=== PATIENT | female | born 1970 | race African-American/Black ===

== ENCOUNTER 2016-07-01 12:20 | Emergency (ER) | payer MEDICARE, OTHER ==
[~2016-07-01] VITALS: Ht 162.6 cm; Wt 90.0 kg
[~2016-07-01 12:20] MED LIST: DIVA250ER PO; MACR100C2 PO; NAPR1TAB34 PO; RISP2TAB37 PO
[2016-07-01 12:22] VITALS: BP 177/86; PULSE 102; RESP 20; TEMP 98.2; O2SAT 98
[2016-07-01] MEDS ORDERED: PANTOPRAZOLE SODIUM 40 MG VIAL IVP ONE (12:45)
--- NOTE | 2016-07-01 13:14 | RADRPT ---
EXAM DATE/TIME: 07/01/2016 12:45 [place] COMPARISON: CHEST SINGLE AP, May 04, 2015, 21:58. INDICATIONS : Cough. Vomiting blood. MEDICAL HISTORY : Hypertension. Diabetes mellitus type II. SURGICAL HISTORY : None. ENCOUNTER: Initial ACUITY: 1 day PAIN SCORE: 0/10 LOCATION: Bilateral chest FINDINGS: A single view of the chest demonstrates the lungs to be symmetrically aerated without evidence of mas s, infiltrate or effusion. The cardiomediastinal contours are unremarkable. Osseous structures are intact. CONCLUSION: No acute disease. Brady Davies MD on July 01, 2016 at 13:12 Board Certified Radiologist. This report was verified electronically.
[2016-07-01 13:20] LABS: AUTOMATED NEUTROPHIL # 5.2 TH/MM3 (1.8-7.7); BASOPHIL # 0.1 TH/MM3 (0-0.2); BASOPHIL % 1.4 % (0.0-2.0); EOSINOPHIL # 0.4 TH/MM3 (0-0.4); HEMATOCRIT 40.2 % (35.0-46.0); HEMO FLAGS DIFF FINAL; LYMPH % 31.8 % (9.0-44.0); LYMPHOCYTE # 2.9 TH/MM3 (1.0-4.8); MEAN CELL VOLUME 85.1 FL (80.0-100.0); MEAN CORPUSCULAR HEMOGLOBIN 28.2 PG (27.0-34.0); MEAN CORPUSCULAR HGB CONC 33.2 % (32.0-36.0); MONO % 4.6 % (0.0-8.0); NEUT % 58.2 % (16.0-70.0); PLATELET COUNT 393 TH/MM3 (150-450); RED BLOOD COUNT 4.72 MIL/MM3 (4.00-5.30); RED CELL DISTRIBUTION WIDTH 16.5 % (11.6-17.2)
[2016-07-01 13:30] LABS: APTT (PATIENT) 27.1 SEC (24.3-30.1); PROTHROMBIN TIME - PATIENT 10.5 SEC (9.8-11.6)
[2016-07-01 13:46] LABS: ANION GAP 9 MEQ/L (5-15); AST (GOT) 11 U/L (15-37); BICARBONATE 27.4 MEQ/L (21.0-32.0); BLOOD UREA NITROGEN 16 MG/DL (7-18); CHLORIDE 105 MEQ/L (98-107); GLOMERULAR FILTRATION RATE 52 ML/MIN (>89); POTASSIUM 3.9 MEQ/L (3.5-5.1); SODIUM (NA) 141 MEQ/L (136-145)
[2016-07-01 13:49] LABS: ALKALINE PHOSPHATASE 105 U/L (45-117); ALT (GPT) 21 U/L (10-53); TOTAL BILIRUBIN ADULT 0.2 MG/DL (0.2-1.0)
--- NOTE | 2016-07-01 13:58 | PD ---
Data Data Last Documented VS Vital Signs Date Time Temp Pulse Resp B/P Pulse Ox O2 Delivery O2 Flow Rate FiO2 07/01/16 12:37 68 18 07/01/16 12:22 98.2 177/86 98 Room Air Orders Group A Rapid Strep Screen (07/01/16 12:37) Chest, Single Ap (07/01/16 12:37) Complete Blood Count With Diff (07/01/16 12:44) Comprehensive Metabolic Panel (07/01/16 12:44) Lipase (07/01/16 12:44) Prothrombin Time / Inr (Pt) (07/01/16 12:44) Act Partial Throm Time (Ptt) (07/01/16 12:44) Pantoprazole Inj (Protonix Inj) (07/01/16 12:45) Strep Culture (Group A) (07/01/16 12:45) Labs Laboratory Tests Test 07/01/16 12:56 White Blood Count 9.0 TH/MM3 Red Blood Count 4.72 MIL/MM3 Hemoglobin 13.3 GM/DL Hematocrit 40.2 % Mean Corpuscular Volume 85.1 FL Mean Corpuscular Hemoglobin 28.2 PG Mean Corpuscular Hemoglobin 33.2 % Concent Red Cell Distribution Width 16.5 % Platelet Count 393 TH/MM3 Mean Platelet Volume 7.9 FL Neutrophils (%) (Auto) 58.2 % Lymphocytes (%) (Auto) 31.8 % Monocytes (%) (Auto) 4.6 % Eosinophils (%) (Auto) 4.0 % Basophils (%) (Auto) 1.4 % Neutrophils # (Auto) 5.2 TH/MM3 Lymphocytes # (Auto) 2.9 TH/MM3 Monocytes # (Auto) 0.4 TH/MM3 Eosinophils # (Auto) 0.4 TH/MM3 Basophils # (Auto) 0.1 TH/MM3 CBC Comment DIFF FINAL Differential Comment Prothrombin Time 10.5 SEC Prothromb Time International 1.0 RATIO Ratio Activated Partial 27.1 SEC Thromboplast Time Sodium Level 141 MEQ/L Potassium Level 3.9 MEQ/L Chloride Level 105 MEQ/L Carbon Dioxide Level 27.4 MEQ/L Anion Gap 9 MEQ/L Blood Urea Nitrogen 16 MG/DL Creatinine 1.33 MG/DL Estimat Glomerular Filtration 52 ML/MIN Rate Random Glucose 307 MG/DL Calcium Level 8.7 MG/DL Total Bilirubin 0.2 MG/DL Aspartate Amino Transf 11 U/L (AST/SGOT) Alanine Aminotransferase 21 U/L (ALT/SGPT) Alkaline Phosphatase 105 U/L Total Protein 7.6 GM/DL Albumin 3.3 GM/DL Lipase 159 U/L [facility] Supervised Visit with AGGIE: Yes Narrative Course I, Dr. Cartagena, have reviewed the advance practice practioner's documentation and am in agreement, met with the patient face to face, made the diagnosis, and the medical decision making was done by me. *My assessment and Findings: 46-year-old female with history of HTN, DM, bipolar disorder here with complaint of sore throat and possible hematemesis. Patient states that the last 2 days she has had sore throat. This is bilateral , slightly worsened when she swallows. She has been gargling with salt water without much improvement. No fevers or chills or difficulty eating. She states that she's had some nausea and yesterday had one episode of emesis that was bright reddish in color. She denies eating anything that was reddish dentition generally this was blood. She did not witness any blood clot. She has not had any hematochezia and denies any history of GI bleed. This happened last night and in the interim she has not had any recurrent nausea, vomiting and denies any abdominal pain. Patient denies any hemoptysis. Posterior pharynx is minimally erythematous but no uvulitis. Her abdominal examination is benign. Rectal examination performed by PA, please see documentation. Differential includes pharyngitis, bacterial versus viral. My suspicion for GI bleed is low given patient's symptomatology however this is on the differential. Laboratory workup was negative she remained stable without any persistent nausea or vomiting here. Patient will be discharged home. Danette Cartagena MD Jul 01, 2016 13:58
[2016-07-01] MEDS ORDERED: ALBUAER3 INH (14:03)
[2016-07-01] MEDS ORDERED: AZIT250T3 PO (14:03)
--- NOTE | 2016-07-01 14:03 | PD ---
HPI Chief Complaint: ENT Complaint Time Seen by Provider: 13:51 Travel History International Travel<30 days: No Contact w/Intl Traveler<30days: No Traveled to known affect area: No History of Present Illness HPI 46-year-old female that presents to the ED for evaluation of sore throat as well as congestion and cough and vomiting blood. Per patient she's had this for the past 2 days. Per patient he also started with a sore throat. Per patient she does have sick contacts at home. Per patient she's been also having some cough and she smokes. Per patient when asked if she has blood when she coughs versus when she vomits she states that she only has it when she vomits. Per patient she only has some blood but not a lot. Per patient she's never had this before. She states that she feels a little bit short of breath. She denies any abdominal discomfort at this time and the last time she vomited was around 6:00 this morning. She states that her bowel movements have been normal. She states having chills and sweats. She states that she has no chest pain. She denies any headache. She states that she does have congestion and runny nose. Symptoms have been worsening which is what prompted her visit here today. Per patient her pain in her throat is 6 out of 10. She denies any dizziness. No other symptoms reported. No radiation of the pain. PFSH Past Medical History Bipolar Disorder: Yes Depression: Yes Cardiovascular Problems: Yes Diabetes: Yes Diminished Hearing: No Hypertension: Yes Immunizations Current: Yes Tetanus Vaccination: < 5 Years Influenza Vaccination: Yes ?: Not LMP: 12/2015 : 2 Para: 2 Past Surgical History Abdominal Surgery: Yes (HERNIA REPAIR) Section: Yes (X 2) Other Surgery: Yes (hernia repair) Social History Alcohol Use: Yes (occ) Tobacco Use: Yes (1 PPD) Substance Use: No Allergies-Medications (Allergen,Severity, Reaction): Coded Allergies: No Known Allergies (Unverified , 04/01/16) Reported Meds & Prescriptions Reported Meds & Active Scripts Active Naproxen EC (Naproxen) 500 Mg Tabdr 500 Mg PO BID PRN Reported Risperdal (Risperidone) 2 Mg Tab 2 Mg PO BID Depakote ER (Divalproex Sodium) 250 Mg Cesario 250 Mg PO BID Review of Systems General / Constitutional: Positive: Chills, No: Fever, Weight Gain, Weight Loss, Other Eyes: No: Diploplia, Blurred Vision, Photophobia, Drainage, Redness, Foreign Body Sensation, Pain, Tearing, Blind Spots, Visual changes, Blindness, Other HENT: Positive: Sore Throat, Rhinitis, Congestion, No: Headaches, Vertigo, Lightheadedness, Rhinorrhea, Nosebleed, Neck Stiffness, Neck Pain, Masses, Gingival Bleeding, Dental Difficulties, Ear Discharge, Earache, Other Cardiovascular: No: Chest Pain or Discomfort, Palpitations, Irregular Rhythm, Tachycardia, Diaphoresis, Syncope, Dyspnea on exertion, Varicosities, Edema, Cyanosis, Varicosities, Phlebitis, Claudication, Other Respiratory: Positive: Cough, Shortness of Breath, No: Wheezing, Sneezing, Orthopnea, Hemoptysis, Stridor, Night Sweats, Pleuritic Pain, Other Gastrointestinal: Positive: Nausea, Vomiting, Hematemesis, No: Diarrhea, Abdominal Pain, Hematochezia, Constipation, Changes in Bowel Habits, Indigestion , Dysphagia, Loss of Appetite, Other Genitourinary: No: Urgency, Frequency, Dysuria, Nocturia, Hematuria, Decreased Urinary Output, Oliguria, Hesitancy, Dribbling, Incontinence, Pelvic Pain, Flank Pain, Dyspareunia, Discharge, Dysmenorrhea, Menorrhagia, Metorrhagia, Vaginal Bleeding, Other Musculoskeletal: No: Myalgias, Arthralgias, Limited ROM, Weakness, Cramping, Edema, Pain, Atrophy, Other Skin: No Rash, No Itching, No Dryness, No Lumps, No Hives, No Change in Pigmentation, No Change in nails, No Alopecia, No Lesions, No Breast Lumps, No Breast Tenderness, No Breast Swelling, No Other Neurologic: No: Weakness, Dizziness, Syncope, Focal Abnormalities, Coordination Problem, Tremor, Ataxia, Headache, Change in Mentation, Slurred Speech, Paresthesia, Incontinence, Seizures, Sensory Disturbance, Other Psychiatric: No: Anxiety, Depression, Suicidal Ideations, Disorder of Thought, Mood Disorder, Substance Abuse, Homicidal Ideation, Other Endocrine: No: Heat Intolerance, Cold Intolerance, Polyuria, Polydipsia, Other Hematologic/Lymphatic: No: Easy Bruising, Lymph Node Enlargement, Other Physical Exam Narrative GENERAL: Well-nourished, well-developed patient in no apparent distress. SKIN: Warm and dry. HEAD: Atraumatic. Normocephalic. EYES: Pupils equal and round reactive to light and accommodation. No scleral icterus. No injection or drainage. ENT: No nasal bleeding or discharge. Mucous membranes pink and moist. TMs are clear with no sign of infection or perforation. No mastoid tenderness. Ear canals are intact bilaterally. No lymphadenopathy. Nostril mucosa is red and moist with clear mucus noted. No sinus tenderness to palpation noted. Tonsils are not enlarged or swollen. No ulvua Deviation. Tongue is midline. NECK: Trachea midline. No JVD. No meningeal signs noted CARDIOVASCULAR: Regular rate and rhythm. No murmurs, S3, S4 RESPIRATORY: No accessory muscle use. Clear to auscultation. Breath sounds equal bilaterally. GASTROINTESTINAL: Abdomen soft, non-tender, nondistended. Hepatic and splenic margins not palpable. MUSCULOSKELETAL: Extremities without clubbing, cyanosis, or edema. No obvious deformities. Full range of motion of the upper and lower extremities bilaterally. 2+ pulses bilaterally. NEUROLOGICAL: Awake and alert. No obvious cranial nerve deficits. Motor grossly within normal limits. Five out of 5 muscle strength in the arms and legs. Normal speech. PSYCHIATRIC: Appropriate mood and affect; insight and judgment normal. Data Data Last Documented VS Vital Signs Date Time Temp Pulse Resp B/P Pulse Ox O2 Delivery O2 Flow Rate FiO2 07/01/16 12:37 68 18 07/01/16 12:22 98.2 177/86 98 Room Air Orders Group A Rapid Strep Screen (07/01/16 12:37) Chest, Single Ap (07/01/16 12:37) Complete Blood Count With Diff (07/01/16 12:44) Comprehensive Metabolic Panel (07/01/16 12:44) Lipase (07/01/16 12:44) Prothrombin Time / Inr (Pt) (07/01/16 12:44) Act Partial Throm Time (Ptt) (07/01/16 12:44) Pantoprazole Inj (Protonix Inj) (07/01/16 12:45) Strep Culture (Group A) (07/01/16 12:45) Labs Laboratory Tests Test 07/01/16 12:56 White Blood Count 9.0 TH/MM3 Red Blood Count 4.72 MIL/MM3 Hemoglobin 13.3 GM/DL Hematocrit 40.2 % Mean Corpuscular Volume 85.1 FL Mean Corpuscular Hemoglobin 28.2 PG Mean Corpuscular Hemoglobin 33.2 % Concent Red Cell Distribution Width 16.5 % Platelet Count 393 TH/MM3 Mean Platelet Volume 7.9 FL Neutrophils (%) (Auto) 58.2 % Lymphocytes (%) (Auto) 31.8 % Monocytes (%) (Auto) 4.6 % Eosinophils (%) (Auto) 4.0 % Basophils (%) (Auto) 1.4 % Neutrophils # (Auto) 5.2 TH/MM3 Lymphocytes # (Auto) 2.9 TH/MM3 Monocytes # (Auto) 0.4 TH/MM3 Eosinophils # (Auto) 0.4 TH/MM3 Basophils # (Auto) 0.1 TH/MM3 CBC Comment DIFF FINAL Differential Comment Prothrombin Time 10.5 SEC Prothromb Time International 1.0 RATIO Ratio Activated Partial 27.1 SEC Thromboplast Time Sodium Level 141 MEQ/L Potassium Level 3.9 MEQ/L Chloride Level 105 MEQ/L Carbon Dioxide Level 27.4 MEQ/L Anion Gap 9 MEQ/L Blood Urea Nitrogen 16 MG/DL Creatinine 1.33 MG/DL Estimat Glomerular Filtration 52 ML/MIN Rate Random Glucose 307 MG/DL Calcium Level 8.7 MG/DL Total Bilirubin 0.2 MG/DL Aspartate Amino Transf 11 U/L (AST/SGOT) Alanine Aminotransferase 21 U/L (ALT/SGPT) Alkaline Phosphatase 105 U/L Total Protein 7.6 GM/DL Albumin 3.3 GM/DL Lipase 159 U/L [facility] Medical Decision Making Medical Screen Exam Complete: Yes Emergency Medical Condition: Yes Medical Record Reviewed: Yes Interpretation(s) CBC & BMP Diagram 07/01/16 12:56 Chest x-ray was negative for acute disease. Coags within normal limits. LFTs and lipase within normal limits. Differential Diagnosis Hematemesis versus sore throat versus pharyngitis versus strep throat versus pneumonia versus gastritis versus peptic ulcer disease Narrative Course 46-year-old female that presents to the ED for evaluation of sore throat and hematemesis. Patient was probably examine him and attending and was found to have signs and symptoms of unclear etiology. Patient is somewhat of a car historian secondary to her mental illness. She does tell us that she has been vomiting blood and not related to the cough. Because of this lab work was done as well as chest x-ray. Hemoccult was done by me with the nurse present. He was negative. At this time my attending recommends discharge. Patient was given 1 albuterol inhaler here and she'll be sent home with a prescription for albuterol inhaler. Patient was given a prescription for azithromycin. Patient was told to follow with PCP. Take OTC medicines as needed. See ED worsening symptoms. HemaPrompt Point of Care Internal Pos. & Neg. Controls: Passed Fecal Specimen Occult Blood: Negative Diagnosis Primary Impression: Pharyngitis Qualified Code: J02.9 - Pharyngitis, unspecified etiology Additional Impression: Hematemesis Qualified Code: K92.0 - Hematemesis with nausea Patient Instructions: General Instructions Additional Instructions: Tylenol for pain and fever. You can use [id number] antihistamine as well as well as Mucinex as needed for runny nose and congestion. Cough drops for cough as needed. Drink plenty of fluids. Follow-up with PCP. See ED for worsening symptoms. Med/Other Pt SpecificInfo: Prescription(s) given Disposition: 01 DISCHARGE HOME Condition: Stable Aime Huizar Jul 01, 2016 14:03
[2016-07-01] MEDS ORDERED: RESP: ALBUTEROL 2.5 MG/3 ML NEB (SCH) INH ONE (14:15)
== END 2016-07-01 15:01 | disposition home or self-care (01) ==
LOC: NEPE 12:20
DX: J02.9 Acute pharyngitis, unspecified (principal); K92.0 Hematemesis; R06.02 Shortness of breath; R05 Cough; E11.9 Type 2 diabetes mellitus without complications; I10 Essential (primary) hypertension; F17.200 Nicotine dependence, unspecified, uncomplicated; Z86.59 Personal history of other mental and behavioral disorders; Z86.79 Personal history of other diseases of the circulatory system
CPT/HCPCS: 71010; 80053; 83690; 85025; 85610; 85730; 87081; 87880; 94664; 96374; 99284; C9113; J7613

== ENCOUNTER 2016-10-31 07:58 | Emergency (ER) | payer MEDICARE, OTHER ==
[~2016-10-31 07:58] MED LIST changes: +ALBUAER3 INH; +AZIT250T3 PO; -MACR100C2 PO
[2016-10-31 07:59] VITALS: BP 163/93; PULSE 102; RESP 20; TEMP 98.7; O2SAT 97
[2016-10-31 08:13] VITALS: BP 140/92; PULSE 90; RESP 19; O2SAT 97
[2016-10-31] MEDS ORDERED: PANTOPRAZOLE SODIUM 40 MG VIAL IV PUSH ONE (08:30)
[2016-10-31] MEDS ORDERED: ONDANSETRON HCL 4 MG/2 ML VIAL IV PUSH ONE (08:30)
[2016-10-31] MEDS ORDERED: SODIUM CHLOR 0.9% 1000 ML INJ 1,000 ML IV ONE (08:30)
[2016-10-31 09:18] LABS: BACTERIA, URINE RARE /hpf; BLOOD, URINE NEG (NEG); COMMENT (UR) CULT NOT INDICATED; CULTURE IF INDICATED CULT NOT INDICATED; GLUCOSE,URINE NEG (NEG); KETONE, URINE NEG (NEG); MUCUS URINE FEW /lpf (OCC); NITRITE,URINE NEG (NEG); PH, URINE 5.5 (5.0-8.5); SQUAMOUS EPITHELIAL CELL URINE 6 /hpf (0-5); URINE COLOR YELLOW (YELLW/STRAW)
[2016-10-31 09:28] LABS: AUTOMATED NEUTROPHIL # 5.6 TH/MM3 (1.8-7.7); BASOPHIL # 0.1 TH/MM3 (0-0.2); BASOPHIL % 1.2 % (0.0-2.0); EOSINOPHIL # 0.4 TH/MM3 (0-0.4); EOSINOPHIL % 4.6 % (0.0-4.0); HEMATOCRIT 41.5 % (35.0-46.0); HEMO FLAGS DIFF FINAL; MEAN CELL VOLUME 88.4 FL (80.0-100.0); MEAN CORPUSCULAR HEMOGLOBIN 29.7 PG (27.0-34.0); MEAN CORPUSCULAR HGB CONC 33.6 % (32.0-36.0); MONO % 5.7 % (0.0-8.0); NEUT % 57.5 % (16.0-70.0); PLATELET COUNT 340 TH/MM3 (150-450); RED CELL DISTRIBUTION WIDTH 14.6 % (11.6-17.2); WHITE BLOOD COUNT 9.7 TH/MM3 (4.0-11.0)
--- NOTE | 2016-10-31 09:38 | PD ---
HPI Chief Complaint: GI Complaint Time Seen by Provider: 08:11 (Chris Lewis MD) Travel History International Travel<30 days: No Contact w/Intl Traveler<30days: No Traveled to known affect area: No (Chris Lewis MD) History of Present Illness HPI This is a 46-year-old female patient with a past medical history of bipolar schizoaffective disorder hypertension and type 2 diabetes who admits to drinking alcohol regularly presents with a complaint of a 2 day history of abdominal pain that she rates maybe 3-4 out of 10 back pain and burning when she urinates. Patient denies vaginal discharge fever chills. Patient states she still has appetite but she has vomited at least 2 times a day for the past 2 days and feels nauseated. Patient is sexually active with one male partner patient states she no longer is menstruating. (Chris Lewis MD) PFSH Past Medical History Bipolar Disorder: Yes Depression: Yes Cardiovascular Problems: Yes Diabetes: Yes Patient Takes Glucophage: No Diminished Hearing: No Hypertension: Yes Immunizations Current: Yes ?: Unknown : 2 Para: 2 (Chris Lewis MD) Past Surgical History Abdominal Surgery: Yes (HERNIA REPAIR) Section: Yes (X 2) Other Surgery: Yes (hernia repair) (Chris Lewis MD) Social History Alcohol Use: Yes (occ) Tobacco Use: Yes (1 PPD) Substance Use: No (Chris Lewis MD) Allergies-Medications (Allergen,Severity, Reaction): Coded Allergies: No Known Allergies (Unverified , 04/01/16) Reported Meds & Prescriptions Reported Meds & Active Scripts Active Cipro (Ciprofloxacin HCl) 500 Mg Tab 500 Mg PO BID 7 Days Protonix (Pantoprazole Sodium) 40 Mg Tab 40 Mg PO DAILY Tylenol (Acetaminophen) 325 Mg Tab 650 Mg PO Q6H PRN Azithromycin 250 Mg Tab 250 Mg PO DIRECTED Take 2 tabs (500 mg) on day 1 then 1 tab daily x 4 days. Proair Hfa 8.5 GM Inh (Albuterol Sulfate) 90 Mcg/Act Aer 2 Puff INH Q4-6H PRN 108 mcg/actuation Naproxen EC (Naproxen) 500 Mg Tabdr 500 Mg PO BID PRN Reported Risperdal (Risperidone) 2 Mg Tab 2 Mg PO BID Depakote ER (Divalproex Sodium) 250 Mg Cesario 250 Mg PO BID (Danette Cartagena MD) Review of Systems ROS Limitations: Clinical Condition Except as stated in HPI: all other systems reviewed are Neg General / Constitutional: No: Fever, Chills, Weight Gain, Weight Loss, Other Eyes: No: Diploplia, Blurred Vision, Photophobia, Drainage, Redness, Foreign Body Sensation, Pain, Tearing, Blind Spots, Visual changes, Blindness, Other HENT: No: Headaches, Vertigo, Lightheadedness, Sore Throat, Rhinitis, Rhinorrhea, Congestion, Nosebleed, Neck Stiffness, Neck Pain, Masses, Gingival Bleeding, Dental Difficulties, Ear Discharge, Earache, Other Cardiovascular: No: Chest Pain or Discomfort, Palpitations, Irregular Rhythm, Tachycardia, Diaphoresis, Syncope, Dyspnea on exertion, Varicosities, Edema, Cyanosis, Varicosities, Phlebitis, Claudication, Other Respiratory: No: Cough, Shortness of Breath, Wheezing, Sneezing, Orthopnea, Hemoptysis, Stridor, Night Sweats, Pleuritic Pain, Other Gastrointestinal: Positive: Nausea, Vomiting, Abdominal Pain Genitourinary: Positive: Dysuria, Flank Pain, No: Urgency, Frequency, Nocturia , Hematuria, Decreased Urinary Output, Oliguria, Hesitancy, Dribbling, Incontinence, Pelvic Pain, Dyspareunia, Discharge, Dysmenorrhea, Menorrhagia, Metorrhagia, Vaginal Bleeding, Other Musculoskeletal: No: Myalgias, Arthralgias, Limited ROM, Weakness, Cramping, Edema, Pain, Atrophy, Other Skin: No Rash, No Itching, No Dryness, No Lumps, No Hives, No Change in Pigmentation, No Change in nails, No Alopecia, No Lesions, No Breast Lumps, No Breast Tenderness, No Breast Swelling, No Other Neurologic: No: Weakness, Dizziness, Syncope, Focal Abnormalities, Coordination Problem, Tremor, Ataxia, Headache, Change in Mentation, Slurred Speech, Paresthesia, Incontinence, Seizures, Sensory Disturbance, Other Psychiatric: No: Anxiety, Depression, Suicidal Ideations, Disorder of Thought, Mood Disorder, Substance Abuse, Homicidal Ideation, Other Endocrine: No: Heat Intolerance, Cold Intolerance, Polyuria, Polydipsia, Other Hematologic/Lymphatic: No: Easy Bruising, Lymph Node Enlargement, Other (Chris Lewis MD) Physical Exam Exam Limitations: Clinical Condition Narrative GENERAL: Middle-aged female in mild distress SKIN: Focused skin assessment warm/dry.no lesions no cyanosis no erythema HEAD: Atraumatic. Normocephalic. EYES: Pupils equal and round and reactive . No scleral icterus. No injection or drainage. ENT: No nasal bleeding or discharge. Oral mucosa somewhat dry NECK: Trachea midline. No JVD. CARDIOVASCULAR: S1-S2 appreciated. Regular rate and rhythm. No murmur appreciated. Pulses normal throughout. RESPIRATORY: No accessory muscle use. Clear to auscultation. Breath sounds equal bilaterally. GASTROINTESTINAL: Abdomen soft, positive epigastric tenderness positive suprapubic tenderness, nondistended. Hepatic and splenic margins not palpable. Bowel sounds normal. No peritoneal signs. exam: No true CMT exam uncomfortable however scant whitish discharge with a mild fishy odor no genital lesions no adnexal masses or tenderness no vaginal bleeding MUSCULOSKELETAL: No obvious deformities. No clubbing. No cyanosis. No edema. Positive left flank tenderness NEUROLOGICAL: Awake and alert and oriented 3.. No obvious cranial nerve deficits. Motor and sensory exam grossly within normal limits. Normal speech. No meningeal signs. PSYCHIATRIC: Affect somewhat flat t; insight and judgment normal. No suicidal or homicidal ideation. (Chris Lewis MD) Data Data Orders Pantoprazole Inj (Protonix Inj) (10/31/16 08:30) Ondansetron Inj (Zofran Inj) (10/31/16 08:30) Sodium Chlor 0.9% 1000 Ml Inj (Ns 1000 M (10/31/16 08:30) Complete Blood Count With Diff (10/31/16 08:30) Comprehensive Metabolic Panel (10/31/16 08:30) Direct Bilirubin (10/31/16 08:30) Amylase (10/31/16 08:30) Lipase (10/31/16 08:30) Urinalysis - C+S If Indicated (10/31/16 08:30) Ed Urine Pregnancytest Poc (10/31/16 08:30) Us Abdomen Gallbladder (10/31/16 ) Wet Prep Profile (10/31/16 09:38) Gc And Chlamydia Pcr (10/31/16 09:38) Ciprofloxacin (Cipro) (10/31/16 10:45) Acetaminophen (Tylenol) (10/31/16 10:45) Alcohol (Ethanol) (10/31/16 10:48) (Danette Cartagena MD) [facility] [place] Medical Decision Making Medical Screen Exam Complete: Yes Emergency Medical Condition: Yes Medical Record Reviewed: Yes Interpretation(s) White cell count normal glucose 183 UA small leukocyte Wet prep negative gallbladder ultrasound normal Differential Diagnosis Differential diagnose dehydration acute gastritis urinary tract infection abdominal pain Narrative Course This is a 46-year-old female evaluated for abdominal pain patient noted that have epigastric and left flank tenderness on exam pelvic exam reveals scant normal-appearing discharged without mild strong odor but no appreciable CMT adnexal masses or tenderness no vaginal bleeding or vaginal lesions noted patient has a normal white cell count syndrome glucose 183 patient given 1 L normal saline Protonix and Zofran and epigastric pain improved patient also given Tylenol extra strength and by mouth Cipro and was able to tolerate all of the oral medication. Ultrasound of gallbladder was essentially normal patient states she feels better. We will discharge patient home on Protonix and Zofran and ciprofloxacin patient , counseled on EtOH abuse and instructed to follow with her primary care provider to discuss genital culture results and for further evaluation and management (Chris Lewis MD) Narrative Course [employer] Administrator signing for document in draft. (Danette Cartagena MD) Diagnosis Primary Impression: Acute gastritis Additional Impressions: Dehydration urinary tract infection Patient Instructions: Gastritis (DC), General Instructions, Type 2 Diabetes in Adults (DC), Urinary Tract Infection in Women (DC) Additional Instructions: Stay well hydrated Avoid Motrin and of other nonsteroidal drugs Take Tylenol extra strength as needed for pain Take Zofran as needed for nausea Avoid alcohol use Finish antibiotics Follow diabetic diet Return if symptoms persist or worsen Follow-up with her primary care doctor in 1 week as needed Scripts Ciprofloxacin (Cipro)500 Mg [id number] Mg PO BID 7 Days Ref 0 Prov:Chris Lewis MD 10/31/16 Pantoprazole (Protonix)40 Mg Tab40 Mg PO DAILY #30 TAB Ref 0 Prov:Chris Lewis MD 10/31/16 Acetaminophen (Tylenol)325 Mg [id number] Mg PO Q6H PRN (pain) #15 TAB Ref 0 Prov:Chris Lewis MD 10/31/16 Disposition: 01 DISCHARGE HOME Condition: Stable Chris Lewis MD Oct 31, 2016 09:38 Danette Cartagena MD Nov 09, 2016 17:25 CBC Comment DIFF FINAL Differential Comment Urine Color YELLOW Urine Turbidity HAZY Urine pH 5.5 Urine Specific Joseph 1.021 Urine Protein TRACE mg/dL Urine Glucose (UA) NEG mg/dL Urine Ketones NEG mg/dL Urine Occult Blood NEG Urine Nitrite NEG Urine Bilirubin NEG Urine Urobilinogen LESS THAN 2.0 MG/DL Urine Leukocyte Esterase SMALL Urine RBC 1 /hpf Urine WBC 4 /hpf Urine Squamous Epithelial 6 /hpf Cells Urine Bacteria RARE /hpf Urine Mucus FEW /lpf Microscopic Urinalysis Comment CULT NOT INDICATED Sodium Level 139 MEQ/L Potassium Level 4.3 MEQ/L Chloride Level 108 MEQ/L Carbon Dioxide Level 23.1 MEQ/L Anion Gap 8 MEQ/L Blood Urea Nitrogen 12 MG/DL Creatinine 0.92 MG/DL Estimat Glomerular Filtration 80 ML/MIN Rate Random Glucose 183 MG/DL Calcium Level 9.0 MG/DL Total Bilirubin 0.4 MG/DL Direct Bilirubin 0.1 MG/DL Aspartate Amino Transf 16 U/L (AST/SGOT) Alanine Aminotransferase 21 U/L (ALT/SGPT) Alkaline Phosphatase 107 U/L Total Protein 7.3 GM/DL Albumin 3.2 GM/DL Amylase Level 20 U/L Lipase 121 U/L Ethyl Alcohol Level LESS THAN 3 MG/DL Clue Cells (Wet Prep) NONE SEEN Vaginal Trichomonas (Wet Prep) NONE SEEN Vaginal Yeast (Wet Prep) NONE SEEN Chlamydia trachomatis DNA NOT DETECTED (PCR) Neisseria gonorrhoeae DNA NOT DETECTED (PCR) MDM Medical Decision Making Medical Screen Exam Complete: Yes Emergency Medical Condition: Yes Medical Record Reviewed: Yes Interpretation(s) White cell count normal glucose 183 UA small leukocyte Wet prep negative gallbladder ultrasound normal Differential Diagnosis Differential diagnose dehydration acute gastritis urinary tract infection abdominal pain Narrative Course This is a 46-year-old female evaluated for abdominal pain patient noted that have epigastric and left flank tenderness on exam pelvic exam reveals scant normal-appearing discharged without mild strong odor but no appreciable CMT adnexal masses or tenderness no vaginal bleeding or vaginal lesions noted patient has a normal white cell count syndrome glucose 183 patient given 1 L normal saline Protonix and Zofran and epigastric pain improved patient also given Tylenol extra strength and by mouth Cipro and was able to tolerate all of the oral medication. Ultrasound of gallbladder was essentially normal patient states she feels better. We will discharge patient home on Protonix and Zofran and ciprofloxacin patient , counseled on EtOH abuse and instructed to follow with her primary care provider to discuss genital culture results and for further evaluation and management Diagnosis Primary Impression: Acute gastritis Additional Impressions: Dehydration urinary tract infection Patient Instructions: Gastritis (DC), General Instructions, Type 2 Diabetes in Adults (DC), Urinary Tract Infection in Women (DC) Additional Instructions: Stay well hydrated Avoid Motrin and of other nonsteroidal drugs Take Tylenol extra strength as needed for pain Take Zofran as needed for nausea Avoid alcohol use Finish antibiotics Follow diabetic diet Return if symptoms persist or worsen Follow-up with her primary care doctor in 1 week as needed Scripts Ciprofloxacin (Cipro)500 Mg [id number] Mg PO BID 7 Days Ref 0 Prov:Chris Lewis MD 10/31/16 Pantoprazole (Protonix)40 Mg Tab40 Mg PO DAILY #30 TAB Ref 0 Prov:Chris Lewis MD 10/31/16 Acetaminophen (Tylenol)325 Mg [id number] Mg PO Q6H PRN (pain) #15 TAB Ref 0 Prov:Chris Lewis MD 10/31/16 Disposition: 01 DISCHARGE HOME Condition: Stable Chris Lewis MD Oct 31, 2016 09:38
[2016-10-31 09:50] LABS: ALKALINE PHOSPHATASE 107 U/L (45-117); TOTAL BILIRUBIN ADULT 0.4 MG/DL (0.2-1.0)
[2016-10-31 09:56] LABS: ALT (GPT) 21 U/L (10-53); AMYLASE 20 U/L (25-115); ANION GAP 8 MEQ/L (5-15); AST (GOT) 16 U/L (15-37); BICARBONATE 23.1 MEQ/L (21.0-32.0); BLOOD UREA NITROGEN 12 MG/DL (7-18); CHLORIDE 108 MEQ/L (98-107); GLOMERULAR FILTRATION RATE 80 ML/MIN (>89); POTASSIUM 4.3 MEQ/L (3.5-5.1); SODIUM (NA) 139 MEQ/L (136-145)
[2016-10-31] MEDS ORDERED: ACETAMINOPHEN 325 MG TAB PO ONE (10:45)
[2016-10-31] MEDS ORDERED: CIPROFLOXACIN 500 MG TAB PO ONE (10:45)
[2016-10-31] MEDS ORDERED: CIPR-9 PO (10:59)
[2016-10-31] MEDS ORDERED: PROT40TA PO (10:59)
[2016-10-31] MEDS ORDERED: TYLE325T PO (10:59)
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
[2016-10-31 12:46] LABS: CHLAMYDIA PCR NOT DETECTED (NOT DETECT); NEISSERIA PCR NOT DETECTED (NOT DETECT)
== END 2016-10-31 11:49 | disposition home or self-care (01) ==
LOC: NEPC 07:58
DX: K29.00 Acute gastritis without bleeding (principal); E86.0 Dehydration; N39.0 Urinary tract infection, site not specified; F31.9 Bipolar disorder, unspecified; E11.9 Type 2 diabetes mellitus without complications; I10 Essential (primary) hypertension; F25.9 Schizoaffective disorder, unspecified; Z79.899 Other long term (current) drug therapy
CPT/HCPCS: 76705; 80053; 80307; 81001; 82150; 82248; 83690; 84703; 85025; 87210; 87491; 87591; 96374; 96375; 99285; C9113; J2405; J7030

== ENCOUNTER 2017-01-23 02:57 | Emergency (ER) | payer MEDICARE, MEDICAID, OTHER ==
[~2017-01-23] VITALS: Ht 152.4 cm; Wt 92.0 kg
[~2017-01-23 02:57] MED LIST changes: +CIPR-9 PO; +PROT40TA PO; +TYLE325T PO
[2017-01-23] MEDS ORDERED: diphenhydrAMINE HCL 50 MG/ML VIAL IM ONE (03:15)
[2017-01-23] MEDS ORDERED: HALOPERIDOL LACTATE 5 MG/ML AMP IM ONE (03:15)
[2017-01-23 03:18] VITALS: BP 146/89; PULSE 100; RESP 18; TEMP 98; O2SAT 96
[2017-01-23 03:39] LABS: AUTOMATED NEUTROPHIL # 6.7 TH/MM3 (1.8-7.7); BASOPHIL # 0.1 TH/MM3 (0-0.2); EOSINOPHIL # 0.2 TH/MM3 (0-0.4); HEMATOCRIT 41.3 % (35.0-46.0); HEMO FLAGS DIFF FINAL; LYMPH % 35.1 % (9.0-44.0); MEAN CORPUSCULAR HEMOGLOBIN 30.4 PG (27.0-34.0); MEAN CORPUSCULAR HGB CONC 34.1 % (32.0-36.0); MONO % 3.5 % (0.0-8.0); NEUT % 58.4 % (16.0-70.0); PLATELET COUNT 484 TH/MM3 (150-450); RED BLOOD COUNT 4.64 MIL/MM3 (4.00-5.30); WHITE BLOOD COUNT 11.5 TH/MM3 (4.0-11.0)
--- NOTE | 2017-01-23 03:54 | PD ---
HPI Chief Complaint: Psychiatric Symptoms Time Seen by Provider: 03:06 Travel History International Travel<30 days: No Contact w/Intl Traveler<30days: No Traveled to known affect area: No History of Present Illness HPI 46-year-old black female presents to emergency department under [place] act by PD. The patient allegedly had made suicidal statements that she was going to walk out in traffic. The patient admits to a history of bipolar and schizophrenia. She is a very poor historian. Patient states that she had done cocaine for the first time tonight. She also states that she was drinking alcohol. She denies any homicidal ideation. She does admit to hearing voices. She does not report with voices are saying. She denies any medical complaints. She denies any other drugs. She does smoke cigarettes. There is some question whether the patient is compliant with her medications. PFSH Past Medical History Bipolar Disorder: Yes Depression: Yes Cardiovascular Problems: Yes High Cholesterol: Yes Diabetes: Yes Patient Takes Glucophage: No (UNKNOWN) Diminished Hearing: No Hypertension: Yes Immunizations Current: Yes Schizophrenia: Yes Tetanus Vaccination: < 5 Years Influenza Vaccination: Yes ?: Not : 2 Para: 2 Past Surgical History Abdominal Surgery: Yes (HERNIA REPAIR) Section: Yes (X 2) Other Surgery: Yes (hernia repair) Social History Alcohol Use: Yes (occ) Tobacco Use: Yes (1 PPD) Substance Use: Yes (COCAINE 01/23/17) Allergies-Medications (Allergen,Severity, Reaction): Coded Allergies: No Known Allergies (Unverified , 04/01/16) Reported Meds & Prescriptions Reported Meds & Active Scripts Active Protonix (Pantoprazole Sodium) 40 Mg Tab 40 Mg PO DAILY Tylenol (Acetaminophen) 325 Mg Tab 650 Mg PO Q6H PRN Proair Hfa 8.5 GM Inh (Albuterol Sulfate) 90 Mcg/Act Aer 2 Puff INH Q4-6H PRN 108 mcg/actuation Reported Risperdal (Risperidone) 2 Mg Tab 2 Mg PO BID Depakote ER (Divalproex Sodium) 250 Mg Cesario 250 Mg PO BID Review of Systems ROS Limitations: Intoxication, Poor Historian Except as stated in HPI: all other systems reviewed are Neg Psychiatric: Positive: Depression, Suicidal Ideations, Disorder of Thought, Mood Disorder, Substance Abuse, No: Anxiety, Homicidal Ideation Physical Exam Narrative GENERAL: Well-nourished, well-developed patient. Patient smells of EtOH. SKIN: Warm and dry. HEAD: Normocephalic and atraumatic. EYES: No scleral icterus. No injection or drainage. ENT: No nasal drainage noted. Mucous membranes pink. Airway patent. NECK: Supple, trachea midline. Moves head freely without obvious discomfort. CARDIOVASCULAR: Regular rate and rhythm without murmurs, gallops, or rubs. RESPIRATORY: Breath sounds equal bilaterally. No accessory muscle use. GASTROINTESTINAL: Abdomen soft, non-tender, nondistended. EXTREMITIES: No cyanosis or edema. BACK: Nontender without obvious deformity. No CVA tenderness. NEURO: Patient is alert and oriented. no sensorimotor deficits. Nonfocal. Mumbled speech. PSYCH: Patient admits to auditory hallucinations. No visual hallucinations. Data Data Last Documented VS Vital Signs Date Time Temp Pulse Resp B/P (MAP) Pulse Ox O2 Delivery O2 Flow Rate FiO2 01/23/17 03:18 98.0 100 18 146/89 (108) 96 Orders Orders Complete Blood Count With Diff (01/23/17 03:09) Comprehensive Metabolic Panel (01/23/17 03:09) Valproic Acid (Depakene) (01/23/17 03:09) Psych Screen (01/23/17 03:09) Drug Screen, Random Urine (01/23/17 03:09) Alcohol (Ethanol) (01/23/17 03:09) Ed Urine Pregnancytest Poc (01/23/17 03:15) Haloperidol Inj (Haldol Inj) (01/23/17 03:15) Diphenhydramine Inj (Benadryl Inj) (01/23/17 03:15) Thyroid Stimulating Hormone (01/23/17 03:15) Labs Laboratory Tests Test 01/23/17 03:15 White Blood Count 11.5 TH/MM3 Red Blood Count 4.64 MIL/MM3 Hemoglobin 14.1 GM/DL Hematocrit 41.3 % Mean Corpuscular Volume 89.0 FL Mean Corpuscular Hemoglobin 30.4 PG Mean Corpuscular Hemoglobin Concent 34.1 % Red Cell Distribution Width 14.0 % Platelet Count 484 TH/MM3 Mean Platelet Volume 7.3 FL Neutrophils (%) (Auto) 58.4 % Lymphocytes (%) (Auto) 35.1 % Monocytes (%) (Auto) 3.5 % Eosinophils (%) (Auto) 2.0 % Basophils (%) (Auto) 1.0 % Neutrophils # (Auto) 6.7 TH/MM3 Lymphocytes # (Auto) 4.0 TH/MM3 Monocytes # (Auto) 0.4 TH/MM3 Eosinophils # (Auto) 0.2 TH/MM3 Basophils # (Auto) 0.1 TH/MM3 CBC Comment DIFF FINAL Differential Comment Blood Urea Nitrogen 9 MG/DL Creatinine 1.06 MG/DL Random Glucose 272 MG/DL Total Protein 8.3 GM/DL Albumin 3.6 GM/DL Calcium Level 8.8 MG/DL Alkaline Phosphatase 118 U/L Aspartate Amino Transf (AST/SGOT) 12 U/L Alanine Aminotransferase (ALT/SGPT) 22 U/L Total Bilirubin 0.3 MG/DL Sodium Level 141 MEQ/L Potassium Level 3.7 MEQ/L Chloride Level 108 MEQ/L Carbon Dioxide Level 23.4 MEQ/L Anion Gap 10 MEQ/L Estimat Glomerular Filtration Rate 68 ML/MIN Thyroid Stimulating Hormone 3rd Gen 1.070 uIU/ML Valproic Acid (Depakene) Level 4 MCG/ML Ethyl Alcohol Level 210 MG/DL MDM Medical Decision Making Medical Screen Exam Complete: Yes Emergency Medical Condition: Yes Medical Record Reviewed: Yes Interpretation(s) Laboratory Tests Test 01/23/17 03:15 White Blood Count 11.5 TH/MM3 Red Blood Count 4.64 MIL/MM3 Hemoglobin 14.1 GM/DL Hematocrit 41.3 % Mean Corpuscular Volume 89.0 FL Mean Corpuscular Hemoglobin 30.4 PG Mean Corpuscular Hemoglobin Concent 34.1 % Red Cell Distribution Width 14.0 % Platelet Count 484 TH/MM3 Mean Platelet Volume 7.3 FL Neutrophils (%) (Auto) 58.4 % Lymphocytes (%) (Auto) 35.1 % Monocytes (%) (Auto) 3.5 % Eosinophils (%) (Auto) 2.0 % Basophils (%) (Auto) 1.0 % Neutrophils # (Auto) 6.7 TH/MM3 Lymphocytes # (Auto) 4.0 TH/MM3 Monocytes # (Auto) 0.4 TH/MM3 Eosinophils # (Auto) 0.2 TH/MM3 Basophils # (Auto) 0.1 TH/MM3 CBC Comment DIFF FINAL Differential Comment Blood Urea Nitrogen 9 MG/DL Creatinine 1.06 MG/DL Random Glucose 272 MG/DL Total Protein 8.3 GM/DL Albumin 3.6 GM/DL Calcium Level 8.8 MG/DL Alkaline Phosphatase 118 U/L Aspartate Amino Transf (AST/SGOT) 12 U/L Alanine Aminotransferase (ALT/SGPT) 22 U/L Total Bilirubin 0.3 MG/DL Sodium Level 141 MEQ/L Potassium Level 3.7 MEQ/L Chloride Level 108 MEQ/L Carbon Dioxide Level 23.4 MEQ/L Anion Gap 10 MEQ/L Estimat Glomerular Filtration Rate 68 ML/MIN Thyroid Stimulating Hormone 3rd Gen 1.070 uIU/ML Valproic Acid (Depakene) Level 4 MCG/ML Ethyl Alcohol Level 210 MG/DL Differential Diagnosis MDM: High Differential diagnoses: Schizophrenia, schizoaffective disorder, bipolar, anxiety, depression, adjustment reaction, mood disorder NOS, ODD, depressive disorder NOS, dementia, dementia with agitation, psychosis NOS, substance induced mood disorder, infection,electrolyte abnormality, malingering. Narrative Course Mental health screening discussed with the patient. Psychiatric screen ordered. The patient is given Haldol 5 mg and Benadryl 50 mg IM. The patient is been medically cleared. Diagnosis Primary Impression: Medical clearance for psychiatric admission Additional Impressions: Schizophrenia Qualified Codes: F20.9 - Schizophrenia, unspecified Substance abuse Condition: Stable Alejandro Loving Jan 23, 2017 03:54
[2017-01-23 04:01] LABS: ANION GAP 10 MEQ/L (5-15); AST (GOT) 12 U/L (15-37); BICARBONATE 23.4 MEQ/L (21.0-32.0); BLOOD UREA NITROGEN 9 MG/DL (7-18); CHLORIDE 108 MEQ/L (98-107); GLOMERULAR FILTRATION RATE 68 ML/MIN (>89); POTASSIUM 3.7 MEQ/L (3.5-5.1); SODIUM (NA) 141 MEQ/L (136-145)
[2017-01-23 04:12] LABS: ALKALINE PHOSPHATASE 118 U/L (45-117); ALT (GPT) 22 U/L (10-53); TOTAL BILIRUBIN ADULT 0.3 MG/DL (0.2-1.0)
[2017-01-23 04:15] LABS: ALCOHOL 210 MG/DL (0-5)
[2017-01-23 07:30] VITALS: BP 130/81; PULSE 86; RESP 17; TEMP 97.8; O2SAT 98
--- NOTE | 2017-01-23 11:32 | PD ---
History of Present Illness Chief Complaint: Psychiatric Symptoms Time Seen by Provider: 10:30 Travel History International Travel<30 Days: No Contact w/Intl Traveler<30days: No Known affected area: No Legal Status Legal Status: Kim Act Kim Act Signed By: Domitila Kim Act Comment: Signed by [facility] Officer Peewee Leahy #[id number] History of Present Illness: Patient seen at bedside with nurse Merle. Patient is currently denying suicidal or homicidal ideation, plan or intent. She was recommended for [facility] ([facility] but she would rather go home. She does not have any psychotic symptoms and her cognition is intact. This physician feels she manipulates "voices" and they come and go depending on whether the patient is homeless or in need of a place to stay. This physician reviewed the patient's previous hospitalization at [facility] in which her "voices" disappeared the day after admission when she was allowed to go home with her daughter. Patient is unsure if her daughter will except her at this time but that is not a valid reason to admit the patient. Patient does have positive toxicology for cocaine and she is positive for alcohol. PFSH Past Medical History Bipolar Disorder: Yes Depression: Yes Cardiovascular Problems: Yes High Cholesterol: Yes Diabetes: Yes Patient Takes Glucophage: No (UNKNOWN) Diminished Hearing: No Hypertension: Yes Immunizations Current: Yes Schizophrenia: Yes Tetanus Vaccination: < 5 Years Influenza Vaccination: Yes ?: Not : 2 Para: 2 Past Surgical History Abdominal Surgery: Yes (HERNIA REPAIR) Section: Yes (X 2) Other Surgery: Yes (hernia repair) Psychiatric History Psychiatric History Hx Psychiatric Treatment: Per pt, all her [facility] Inpatient tx psychiatrically here approx 4yrs ago per pt. History of Inpatient Treatment: Yes Guns or firearms in home: No Social History Hx Alcohol Use: Yes (occ) Hx Tobacco Use: Yes (1 PPD) Hx Substance Use: No (Pt denies abuse; Stated only drinks occassionally. ) Substance Use Type: Alcohol, Nicotine/Cigarettes Other Substances Used: "I don't do no Cocaine." Hx of Substance Use Treatment: No Allergies-Medications (Allergen,Severity, Reaction): Coded Allergies: No Known Allergies (Unverified , 04/01/16) Reported Meds & Prescriptions Reported Meds & Active Scripts Active Protonix (Pantoprazole Sodium) 40 Mg Tab 40 Mg PO DAILY Tylenol (Acetaminophen) 325 Mg Tab 650 Mg PO Q6H PRN Proair Hfa 8.5 GM Inh (Albuterol Sulfate) 90 Mcg/Act Aer 2 Puff INH Q4-6H PRN 108 mcg/actuation Reported Risperdal (Risperidone) 2 Mg Tab 2 Mg PO BID Depakote ER (Divalproex Sodium) 250 Mg Cesario 250 Mg PO BID Review of Systems Except as stated in HPI: all other systems reviewed are Neg Exam Alert: Yes [place]: Person, Place, Date, Situation Mood: Calm Affect: Appropriate Speech: Clear, Logical Eye Contact: Normal Memory Intact: Immediate, Recent, Remote Insight/Judgement Adequate MDM Medical Decision Making Medical Record Reviewed: Yes Assessment/Plan Patient interviewed at bedside, medical record reviewed, (including hospitalization with Dr. Buck in the past) and case discussed with nurse Bloom. Patient not felt to have schizoaffective disorder or other major mental illness with true thought disorder. Patient felt to have a substance abuse disorder and is being referred to [facility] for treatment. She is not suicidal or homicidal or psychotic at this time. Her Kim act is being lifted. She does not meet criteria for Kim act or involuntary psychiatric hospitalization. Orders Orders Complete Blood Count With Diff (01/23/17 03:09) Comprehensive Metabolic Panel (01/23/17 03:09) Valproic Acid (Depakene) (01/23/17 03:09) Psych Screen (01/23/17 03:09) Drug Screen, Random Urine (01/23/17 03:09) Alcohol (Ethanol) (01/23/17 03:09) Ed Urine Pregnancytest Poc (01/23/17 03:15) Haloperidol Inj (Haldol Inj) (01/23/17 03:15) Diphenhydramine Inj (Benadryl Inj) (01/23/17 03:15) Thyroid Stimulating Hormone (01/23/17 03:15) Results Vital Signs Date Time Temp Pulse Resp B/P (MAP) Pulse Ox O2 Delivery O2 Flow Rate FiO2 10/4/17 07:30 97.8 86 17 130/81 (97) 98 Room Air 01/23/17 03:18 98.0 100 18 146/89 (108) 96 Laboratory Tests Test 01/23/17 03:15 01/23/17 09:00 White Blood Count 11.5 Red Blood Count 4.64 Hemoglobin 14.1 Hematocrit 41.3 Mean Corpuscular Volume 89.0 Mean Corpuscular Hemoglobin 30.4 Mean Corpuscular Hemoglobin Concent 34.1 Red Cell Distribution Width 14.0 Platelet Count 484 Mean Platelet Volume 7.3 Neutrophils (%) (Auto) 58.4 Lymphocytes (%) (Auto) 35.1 Monocytes (%) (Auto) 3.5 Eosinophils (%) (Auto) 2.0 Basophils (%) (Auto) 1.0 Neutrophils # (Auto) 6.7 Lymphocytes # (Auto) 4.0 Monocytes # (Auto) 0.4 Eosinophils # (Auto) 0.2 Basophils # (Auto) 0.1 CBC Comment DIFF FINAL Differential Comment Blood Urea Nitrogen 9 Creatinine 1.06 Random Glucose 272 Total Protein 8.3 Albumin 3.6 Calcium Level 8.8 Alkaline Phosphatase 118 Aspartate Amino Transf (AST/SGOT) 12 Alanine Aminotransferase (ALT/SGPT) 22 Total Bilirubin 0.3 Sodium Level 141 Potassium Level 3.7 Chloride Level 108 Carbon Dioxide Level 23.4 Anion Gap 10 Estimat Glomerular Filtration Rate 68 Thyroid Stimulating Hormone 3rd Gen 1.070 Valproic Acid (Depakene) Level 4 Ethyl Alcohol Level 210 Urine Opiates Screen NEG Urine Barbiturates Screen NEG Urine Amphetamines Screen NEG Urine Benzodiazepines Screen NEG Urine Cocaine Screen POS Urine Cannabinoids Screen NEG Diagnosis Primary Impression: Cocaine abuse Condition: Stable Davis Gonzalez MD Jan 23, 2017 11:32
--- NOTE | 2017-01-23 11:41 | PD ---
Physical Exam Time Seen by Provider: 11:40 Narrative Please refer to previous providers documentation for details rider patient's current visit. Data Data Last Documented VS Vital Signs Date Time Temp Pulse Resp B/P (MAP) Pulse Ox O2 Delivery O2 Flow Rate FiO2 01/23/17 07:30 97.8 86 17 130/81 (97) 98 Room Air Orders Orders Complete Blood Count With Diff (01/23/17 03:09) Comprehensive Metabolic Panel (01/23/17 03:09) Valproic Acid (Depakene) (01/23/17 03:09) Psych Screen (01/23/17 03:09) Drug Screen, Random Urine (01/23/17 03:09) Alcohol (Ethanol) (01/23/17 03:09) Ed Urine Pregnancytest Poc (01/23/17 03:15) Haloperidol Inj (Haldol Inj) (01/23/17 03:15) Diphenhydramine Inj (Benadryl Inj) (01/23/17 03:15) Thyroid Stimulating Hormone (01/23/17 03:15) Labs Laboratory Tests Test 01/23/17 03:15 01/23/17 09:00 White Blood Count 11.5 TH/MM3 Red Blood Count 4.64 MIL/MM3 Hemoglobin 14.1 GM/DL Hematocrit 41.3 % Mean Corpuscular Volume 89.0 FL Mean Corpuscular Hemoglobin 30.4 PG Mean Corpuscular Hemoglobin Concent 34.1 % Red Cell Distribution Width 14.0 % Platelet Count 484 TH/MM3 Mean Platelet Volume 7.3 FL Neutrophils (%) (Auto) 58.4 % Lymphocytes (%) (Auto) 35.1 % Monocytes (%) (Auto) 3.5 % Eosinophils (%) (Auto) 2.0 % Basophils (%) (Auto) 1.0 % Neutrophils # (Auto) 6.7 TH/MM3 Lymphocytes # (Auto) 4.0 TH/MM3 Monocytes # (Auto) 0.4 TH/MM3 Eosinophils # (Auto) 0.2 TH/MM3 Basophils # (Auto) 0.1 TH/MM3 CBC Comment DIFF FINAL Differential Comment Blood Urea Nitrogen 9 MG/DL Creatinine 1.06 MG/DL Random Glucose 272 MG/DL Total Protein 8.3 GM/DL Albumin 3.6 GM/DL Calcium Level 8.8 MG/DL Alkaline Phosphatase 118 U/L Aspartate Amino Transf (AST/SGOT) 12 U/L Alanine Aminotransferase (ALT/SGPT) 22 U/L Total Bilirubin 0.3 MG/DL Sodium Level 141 MEQ/L Potassium Level 3.7 MEQ/L Chloride Level 108 MEQ/L Carbon Dioxide Level 23.4 MEQ/L Anion Gap 10 MEQ/L Estimat Glomerular Filtration Rate 68 ML/MIN Thyroid Stimulating Hormone 3rd Gen 1.070 uIU/ML Valproic Acid (Depakene) Level 4 MCG/ML Ethyl Alcohol Level 210 MG/DL Urine Opiates Screen NEG Urine Barbiturates Screen NEG Urine Amphetamines Screen NEG Urine Benzodiazepines Screen NEG Urine Cocaine Screen POS Urine Cannabinoids Screen NEG MDM Medical Record Reviewed: Yes Supervised Visit with AGGIE: No Narrative Course 46 year-old female presents to the emergency department under a Kim act. Patient was medically cleared, evaluated by psychiatry, and Kim act has been lifted. With no further acute medical needs, patient will be discharged at this time. Diagnosis Primary Impression: Cocaine abuse Referrals: [facility] (Out patient) Patient Instructions: General Instructions, Polysubstance Abuse (ED) Med/Other Pt SpecificInfo: No Change to Meds Disposition: 01 DISCHARGE HOME Condition: Stable Trinity Mcclendon Jan 23, 2017 11:41
[2017-01-23 12:02] VITALS: BP 124/81; TEMP 97.8
== END 2017-01-23 12:02 | disposition home or self-care (01) ==
LOC: NEPD 02:57
DX: F14.10 Cocaine abuse, uncomplicated (principal); F31.9 Bipolar disorder, unspecified; E78.00 Pure hypercholesterolemia, unspecified; E11.9 Type 2 diabetes mellitus without complications; I10 Essential (primary) hypertension; F20.9 Schizophrenia, unspecified; F17.210 Nicotine dependence, cigarettes, uncomplicated; Z79.899 Other long term (current) drug therapy
CPT/HCPCS: 80053; 80164; 80307; 84443; 84703; 85025; 96372; 99284; J1200; J1630

== ENCOUNTER 2017-04-30 10:01 | Emergency (ER) | payer MEDICAID, MEDICARE, OTHER ==
[~2017-04-30] VITALS: Ht 162.6 cm; Wt 83.5 kg
[~2017-04-30 10:01] MED LIST changes: -AZIT250T3 PO; -CIPR-9 PO; -NAPR1TAB34 PO
[2017-04-30 10:02] VITALS: BP 156/86; PULSE 104; RESP 14; TEMP 97.6; O2SAT 95
[2017-04-30 11:17] LABS: BACTERIA, URINE RARE /hpf; BILIRUBIN, URINE NEG (NEG); BLOOD, URINE NEG (NEG); GLUCOSE,URINE NEG (NEG); KETONE, URINE NEG (NEG); MUCUS URINE FEW /lpf (OCC); NITRITE,URINE NEG (NEG); PH, URINE 5.5 (5.0-8.5); SQUAMOUS EPITHELIAL CELL URINE 3 /hpf (0-5); URINE COLOR YELLOW (YELLW/STRAW); URINE LEUKOCYTE ESTERASE NEG (NEG)
[2017-04-30] MEDS ORDERED: SODIUM CHLORIDE 0.9% FLUSH 10 ML FLUSH IV FLUSH PRN (12:30)
[2017-04-30] MEDS ORDERED: ONDANSETRON HCL 4 MG/2 ML VIAL IVP ONE (12:30)
--- NOTE | 2017-04-30 13:15 | PD ---
HPI Chief Complaint: GI Complaint Time Seen by Provider: 12:05 Travel History International Travel<30 days: No Contact w/Intl Traveler<30days: No Traveled to known affect area: No History of Present Illness HPI 46 year old female presents to the emergency department for evaluation of nausea and vomiting x 2 days. Patient states she vomited once today and twice yesterday. She denies any hematemesis. She denies any abdominal pain or diarrhea. She also would like to be evaluated for a cough and sore throat. Patient states the cough is intermittent and nonproductive. She denies any alleviating or exacerbating factors. She denies any shortness of breath, chest pain, fevers, chills, malaise. Patient currently smokes 1/2 PPD cigarettes. Occasional ETOH use. Denies any drug use, however upon review of her past medical records she has used cocaine previously. Patient has hx of schizophrenia , bipolar, HTN and diabetes. PFSH Past Medical History Bipolar Disorder: Yes Depression: Yes Cardiovascular Problems: Yes High Cholesterol: Yes Diabetes: Yes Diminished Hearing: No Hypertension: Yes Immunizations Current: Yes Schizophrenia: Yes ?: Not LMP: CONTROL DEPO : 2 Para: 2 Past Surgical History Abdominal Surgery: Yes (HERNIA REPAIR) Section: Yes (X 2) Other Surgery: Yes (hernia repair) Social History Alcohol Use: Yes (occ) Tobacco Use: Yes (1 PPD) Substance Use: No (Pt denies abuse; Stated only drinks occassionally. ) Allergies-Medications (Allergen,Severity, Reaction): Coded Allergies: No Known Allergies (Unverified Adverse Reaction, Unknown, 04/30/17) Reported Meds & Prescriptions Reported Meds & Active Scripts Active Reported Metformin (Metformin HCl) 1,000 Mg Tab 1,000 Mg PO BIDPC Review of Systems Except as stated in HPI: all other systems reviewed are Neg Gastrointestinal: Positive: Nausea, Vomiting Physical Exam Narrative GENERAL: Obese, slightly disheveled 46 year old black female patient in no acute distress. SKIN: Focused skin assessment warm/dry. HEAD: Normocephalic. Atraumatic. EYES: No scleral icterus. No injection or drainage. ENT: Mucosa pink and moist. No erythema or exudates. No uvular edema. No uvular , palatal, or tonsillar deviation. Airway patent. NECK: Supple, trachea midline. No JVD or lymphadenopathy. CARDIOVASCULAR: Regular rate and rhythm without murmurs, gallops, or rubs. RESPIRATORY: Breath sounds equal bilaterally. No accessory muscle use. GASTROINTESTINAL: Abdomen round, soft, non-tender, nondistended. MUSCULOSKELETAL: No cyanosis, or edema. BACK: Nontender without obvious deformity. No CVA tenderness. Data Data Last Documented VS Vital Signs Date Time Temp Pulse Resp B/P (MAP) Pulse Ox O2 Delivery O2 Flow Rate FiO2 04/30/17 13:18 98 04/30/17 10:02 97.6 104 14 Orders Orders Urinalysis - C+S If Indicated (04/30/17 10:53) Ed Urine Pregnancytest Poc (04/30/17 10:55) Complete Blood Count With Diff (04/30/17 12:22) Comprehensive Metabolic Panel (04/30/17 12:22) Lipase (04/30/17 12:22) Iv Access Insert/Monitor (04/30/17 12:22) Ecg Monitoring (04/30/17 12:22) Oximetry (04/30/17 12:22) Ondansetron Inj (Zofran Inj) (04/30/17 12:30) Sodium Chloride 0.9% Flush (Ns Flush) (04/30/17 12:30) Ondansetron Odt (Zofran Odt) (04/30/17 13:30) Labs Laboratory Tests Test 04/30/17 10:50 04/30/17 13:20 Urine Color YELLOW Urine Turbidity CLEAR Urine pH 5.5 Urine Specific [place] 1.017 Urine Protein NEG mg/dL Urine Glucose (UA) NEG mg/dL Urine Ketones NEG mg/dL Urine Occult Blood NEG Urine Nitrite NEG Urine Bilirubin NEG Urine Urobilinogen LESS THAN 2.0 MG/DL Urine Leukocyte Esterase NEG Urine RBC LESS THAN 1 /hpf Urine WBC 1 /hpf Urine Squamous Epithelial Cells 3 /hpf Urine Bacteria RARE /hpf Urine Mucus FEW /lpf Microscopic Urinalysis Comment CULT NOT INDICATED White Blood Count 12.1 TH/MM3 Red Blood Count 4.52 MIL/MM3 Hemoglobin 13.9 GM/DL Hematocrit 40.7 % Mean Corpuscular Volume 90.1 FL Mean Corpuscular Hemoglobin 30.9 PG Mean Corpuscular Hemoglobin Concent 34.3 % Red Cell Distribution Width 14.2 % Platelet Count 450 TH/MM3 Mean Platelet Volume 7.6 FL Neutrophils (%) (Auto) 57.6 % Lymphocytes (%) (Auto) 32.1 % Monocytes (%) (Auto) 5.7 % Eosinophils (%) (Auto) 3.7 % Basophils (%) (Auto) 0.9 % Neutrophils # (Auto) 7.0 TH/MM3 Lymphocytes # (Auto) 3.9 TH/MM3 Monocytes # (Auto) 0.7 TH/MM3 Eosinophils # (Auto) 0.5 TH/MM3 Basophils # (Auto) 0.1 TH/MM3 CBC Comment DIFF FINAL Differential Comment Blood Urea Nitrogen 12 MG/DL Creatinine 0.81 MG/DL Random Glucose 160 MG/DL Total Protein 7.8 GM/DL Albumin 3.4 GM/DL Calcium Level 8.9 MG/DL Alkaline Phosphatase 121 U/L Aspartate Amino Transf (AST/SGOT) 19 U/L Alanine Aminotransferase (ALT/SGPT) 24 U/L Total Bilirubin 0.4 MG/DL Sodium Level 137 MEQ/L Potassium Level 4.2 MEQ/L Chloride Level 105 MEQ/L Carbon Dioxide Level 26.6 MEQ/L Anion Gap 5 MEQ/L Estimat Glomerular Filtration Rate 93 ML/MIN Lipase 114 U/L [facility] Medical Decision Making Medical Screen Exam Complete: Yes Emergency Medical Condition: Yes Differential Diagnosis Differential diagnosis include but not limited to gastroenteritis, foodborne illness, viral syndrome Narrative Course Urinalysis sent in triage. Blood work obtained and sent to the lab. CBC, CMP, Lipase ordered and pending. Urine POC test was negative. CBC shows leukocytosis with WBCs 12.1 CMP shows glucose 160 and alkaline phosphatase 121 Lipase 114 UA shows some bacteria and mucous that appears to be contamination, no other acute abnormality Patient given 4mg Zofran SL and is feeling much better. She is requesting to go home. Patient is stable for discharge at this time. Patient discharged home with instructions to return the emergency department with any worsening condition but otherwise follow up with primary care. Diagnosis Primary Impression: Gastroenteritis Referrals: Primary Care Physician Patient Instructions: Gastroenteritis (ED), General Instructions Additional Instructions: Please return to emergency department if your symptoms return or worsen. Follow up with your primary care provider. Take Zofran as directed as needed for nausea. Stay hydrated. Med/Other Pt SpecificInfo: Prescription(s) given Scripts Ondansetron Odt (Zofran Odt) 4 Mg Tab 4 MG SL Q6HR Y for Nausea/Vomiting, #15 TAB 0 Refills Prov: Grace Garcia 04/30/17 Disposition: 01 DISCHARGE HOME Condition: Stable Grace Garcia Apr 30, 2017 13:15
[2017-04-30 13:18] VITALS: O2SAT 98
[2017-04-30] MEDS ORDERED: METF1000 PO (13:22)
--- NOTE | 2017-04-30 13:25 | PD ---
Physical Exam Date Seen by Provider: Apr 30, 2017 Narrative This patient presents with the chief complaint of nausea and vomiting. Onset has been a couple days. Data Data Last Documented VS Vital Signs Date Time Temp Pulse Resp B/P (MAP) Pulse Ox O2 Delivery O2 Flow Rate FiO2 04/30/17 13:18 98 04/30/17 10:02 97.6 104 14 Orders Orders Urinalysis - C+S If Indicated (04/30/17 10:53) Ed Urine Pregnancytest Poc (04/30/17 10:55) Complete Blood Count With Diff (04/30/17 12:22) Comprehensive Metabolic Panel (04/30/17 12:22) Lipase (04/30/17 12:22) Iv Access Insert/Monitor (04/30/17 12:22) Ecg Monitoring (04/30/17 12:22) Oximetry (04/30/17 12:22) Ondansetron Inj (Zofran Inj) (04/30/17 12:30) Sodium Chloride 0.9% Flush (Ns Flush) (04/30/17 12:30) Labs Laboratory Tests Test 04/30/17 10:50 Urine Color YELLOW Urine Turbidity CLEAR Urine pH 5.5 Urine Specific [place] 1.017 Urine Protein NEG mg/dL Urine Glucose (UA) NEG mg/dL Urine Ketones NEG mg/dL Urine Occult Blood NEG Urine Nitrite NEG Urine Bilirubin NEG Urine Urobilinogen LESS THAN 2.0 MG/DL Urine Leukocyte Esterase NEG Urine RBC LESS THAN 1 /hpf Urine WBC 1 /hpf Urine Squamous Epithelial Cells 3 /hpf Urine Bacteria RARE /hpf Urine Mucus FEW /lpf Microscopic Urinalysis Comment CULT NOT INDICATED MDM Supervised Visit with AGGIE: Yes Narrative Course I, Dr. Tate, have reviewed the advance practice practitioner's documentation and am in agreement, met with the patient face to face, made the diagnosis, and the medical decision making was done by me. *My assessment and Findings: The patient is awake and alert. Her mucous membranes are moist. Her abdomen is soft and seems nontender throughout. Please see Grace Garcia NP's note for results of laboratory and radiographic evaluation, ED course, final diagnosis and disposition Kyung Tate MD Apr 30, 2017 13:25
[2017-04-30] MEDS ORDERED: ONDANSETRON ODT 4 MG TAB PO ONE (13:30)
[2017-04-30 13:58] LABS: BASOPHIL # 0.1 TH/MM3 (0-0.2); BASOPHIL % 0.9 % (0.0-2.0); EOSINOPHIL # 0.5 TH/MM3 (0-0.4); EOSINOPHIL % 3.7 % (0.0-4.0); HEMATOCRIT 40.7 % (35.0-46.0); HEMOGLOBIN 13.9 GM/DL (11.6-15.3); LYMPH % 32.1 % (9.0-44.0); LYMPHOCYTE # 3.9 TH/MM3 (1.0-4.8); MEAN CELL VOLUME 90.1 FL (80.0-100.0); MEAN CORPUSCULAR HEMOGLOBIN 30.9 PG (27.0-34.0); MEAN CORPUSCULAR HGB CONC 34.3 % (32.0-36.0); MEAN PLATELET VOLUME 7.6 FL (7.0-11.0); MONO % 5.7 % (0.0-8.0); MONOCYTE # 0.7 TH/MM3 (0-0.9); NEUT % 57.6 % (16.0-70.0); PLATELET COUNT 450 TH/MM3 (150-450); RED BLOOD COUNT 4.52 MIL/MM3 (4.00-5.30); RED CELL DISTRIBUTION WIDTH 14.2 % (11.6-17.2); WHITE BLOOD COUNT 12.1 TH/MM3 (4.0-11.0)
[2017-04-30 14:17] LABS: ALBUMIN 3.4 GM/DL (3.4-5.0); AST (GOT) 19 U/L (15-37); BICARBONATE 26.6 MEQ/L (21.0-32.0); BLOOD UREA NITROGEN 12 MG/DL (7-18); CALCIUM 8.9 MG/DL (8.5-10.1); CHLORIDE 105 MEQ/L (98-107); CREATININE 0.81 MG/DL (0.50-1.00); GLOMERULAR FILTRATION RATE 93 ML/MIN (>89); GLUCOSE,RANDOM 160 MG/DL (74-106); LIPASE 114 U/L (73-393); SODIUM (NA) 137 MEQ/L (136-145)
[2017-04-30 14:21] LABS: ALKALINE PHOSPHATASE 121 U/L (45-117); ALT (GPT) 24 U/L (10-53); TOTAL BILIRUBIN ADULT 0.4 MG/DL (0.2-1.0); TOTAL PROTEIN 7.8 GM/DL (6.4-8.2)
[2017-04-30] MEDS ORDERED: ZOFR4TAB3 SL (14:51)
[2017-04-30 15:02] VITALS: PULSE 75
== END 2017-04-30 15:11 | disposition home or self-care (01) ==
LOC: NEPD 10:01
DX: K52.9 Noninfective gastroenteritis and colitis, unspecified (principal); F31.9 Bipolar disorder, unspecified; E78.00 Pure hypercholesterolemia, unspecified; E11.9 Type 2 diabetes mellitus without complications; F20.9 Schizophrenia, unspecified; I10 Essential (primary) hypertension; F17.210 Nicotine dependence, cigarettes, uncomplicated; Z79.84 Long term (current) use of oral hypoglycemic drugs
CPT/HCPCS: 80053; 81001; 83690; 84703; 85025; 99283